=== PATIENT | female | born 1975 | race American Indian/Alaskan Native ===

== ENCOUNTER 2023-02-28 23:08 | Emergency (ER) | payer MEDICAID ==
[2023-03-01] MEDS ORDERED: Midazolam 1 MG/ML 2 ML SDV ONE (03:25)
[2023-03-01] MEDS ORDERED: Ketorolac 30 MG/ML SDV ONE (03:25)
[2023-03-01] MEDS ORDERED: Lidocaine 1% with EPINEPHrine 1:100,000 50 ML MDV ONE (03:26)
[2023-03-01] MEDS ORDERED: cefTRIAXone 2 GM Vial ONE (03:26)
[2023-03-01] MEDS ORDERED: HYDROmorphone 1 MG/ML Syringe ONE (03:26)
[2023-03-01] MEDS ORDERED: Sodium Chloride 0.9% 50 ML ONE (03:26)
[2023-03-01] MEDS ORDERED: Ondansetron 4 MG/2 ML SDV ONE (05:45)
[2023-03-01 08:00] LABS: INR 1.02 (0.86-1.11); PTT,PARTIAL THROMBOPLSTIN TIME 27.3 SEC (23.9-30.7)
[2023-03-01 08:01] LABS: C-REACTIVE PROTEIN 1.2 mg/dL (0.00-0.90); CALCIUM 8.6 mg/dL (8.5-10.1); CARBON DIOXIDE,CO2 24.2 mmol/L (21.0-32.0); CREATININE 0.6 mg/dL (0.6-1.0); EST CRCL DRUG DOSING (CG) 84.15 mL/min; POTASSIUM,K 3.8 mmol/L (3.5-5.1)
[2023-03-01 08:05] LABS: HEMATOCRIT 39.9 % (36.0-46.0); HEMOGLOBIN 13.3 g/dL (12.0-16.0); MEAN CORPUSCULAR HGB CONC 33.3 g/dL (31.0-37.0); MEAN PLATELET VOLUME 10.5 fL (7.40-12.00); RED BLOOD CELL COUNT 4.75 M/uL (4.30-5.90); WHITE BLOOD CELL COUNT,WBC 8.75 K/uL (4.0-11.0)
== END 2023-03-01 07:41 | disposition home or self-care (01) ==
LOC: MW.ED 23:08
DX: L02.214 Cutaneous abscess of groin (principal)
CPT/HCPCS: 36415; 74177; 80048; 83605; 85027; 85610; 85730; 86140; 87040; 99284; J0696; J1885; J2250; J2405; J3490; 99283

== ENCOUNTER 2023-06-01 13:39 | Emergency (ER) | payer MEDICAID ==
[2023-06-01] MEDS ORDERED: Sodium Chloride 0.9% 10 ML Syringe FLUSH PRN (13:45)
[2023-06-01] MEDS ORDERED: Sodium Chloride 0.9% 2.5 ML Syringe FLUSH PRN (13:45)
[2023-06-01] MEDS ORDERED: Lidocaine 2% Viscous Solution 15 ML UD PO STA (13:45)
[2023-06-01] MEDS ORDERED: Aluminum Hydroxide/Magnesium Hydroxide/Simethicone XS Susp 30 ML Cup PO STA (13:46)
[2023-06-01 14:03] LABS: BASOPHILS PERCENT AUTO 0.3 % (0.0-1.5); EOSINOPHILS ABSOLUTE AUTO 0.1 K/uL (0.0-0.7); EOSINOPHILS PERCENT AUTO 2.1 % (0.0-7.0); HEMATOCRIT 41.3 % (36.0-46.0); HEMOGLOBIN 13.2 g/dL (12.0-16.0); LYMPHOCYTES ABSOLUTE AUTO 2.3 K/uL (0.6-2.4); LYMPHOCYTES PERCENT AUTO 36.6 % (16.0-40.0); MEAN CORPUSCULAR HEMOGLOBIN 26.9 pg (27.0-32.0); MEAN CORPUSCULAR VOLUME 84.3 fL (80.0-98.0); MONOCYTES ABSOLUTE AUTO 0.5 K/uL (0.0-0.8); MONOCYTES PERCENT AUTO 8.6 % (0.0-15.0); NEUTROPHILS ABSOLUTE AUTO 3.2 K/uL (1.4-5.7); NEUTROPHILS PERCENT AUTO 52.4 % (48.0-80.0); NRBC ABSOLUTE 0 K/uL; PLATELET COUNT,PLT 258 K/uL (150-400); WHITE BLOOD CELL COUNT,WBC 6.15 K/uL (4.0-11.0)
[2023-06-01 14:34] LABS: A/G RATIO 0.9 (0.9-1.6); ALBUMIN 3.3 g/dL (3.4-5.0); BILIRUBIN TOTAL 1.5 mg/dL (0.2-1.0); CALCIUM 8.7 mg/dL (8.5-10.1); CARBON DIOXIDE,CO2 22.1 mmol/L (21.0-32.0); CREATININE 0.6 mg/dL (0.6-1.0); EST CRCL DRUG DOSING (CG) 91.68 mL/min; POTASSIUM,K 3.8 mmol/L (3.5-5.1); PROTEIN TOTAL,TP 7.1 g/dL (6.4-8.2)
[2023-06-01 14:36] LABS: MAGNESIUM 1.6 mg/dL (1.8-2.4)
[2023-06-01] MEDS ORDERED: Ketorolac 30 MG/ML SDV IVPUSH STA (14:54)
[2023-06-01 14:58] LABS: HEMOGLOBIN A1C 13.6 %
[2023-06-01 16:20] LABS: BILIRUBIN,URINE NEGATIVE (NEGATIVE); COLOR,URINE YELLOW; GLUCOSE,URINE 250 mg/dL (NEGATIVE); KETONES,URINE TRACE mg/dL (NEGATIVE); LEUKOCYTE ESTERASE,URINE NEGATIVE (NEGATIVE); NITRITE,URINE NEGATIVE (NEGATIVE); OCCULT BLOOD,URINE NEGATIVE (NEGATIVE); PH,URINE 5.5 (5.0-8.0); PROTEIN,URINE NEGATIVE (NEGATIVE); UROBILINOGEN,URINE 0.2 EU/dL (<2.0)
[2023-06-01 16:22] LABS: APPEARANCE,URINE HAZY
[2023-06-01] MEDS ORDERED: Pantoprazole 40 MG in Sodium Chloride 0.9% 10 ML IVPUSH STA (17:08)
== END 2023-06-01 18:00 | disposition home or self-care (01) ==
LOC: MW.ED 13:39
DX: R12 Heartburn (principal); K83.1 Obstruction of bile duct; R74.01 Elevation of levels of liver transaminase levels; D64.9 Anemia, unspecified
CPT/HCPCS: 36415; 71046; 76705; 80053; 81003; 81025; 83036; 83690; 83735; 84484; 85025; 93005; 96374; 96375; 99285; A9270; C9113; J1885; J3490; 93010; 99284

== ENCOUNTER 2025-06-26 13:16 | Emergency (ER) | payer MEDICAID, OTHER ==
[2025-06-26] MEDS ORDERED: Sodium Chloride 0.9% 10 ML Syringe FLUSH PRN (13:55)
[2025-06-26] MEDS ORDERED: Sodium Chloride 0.9% 2.5 ML Syringe FLUSH PRN (13:55)
[2025-06-26 14:02] LABS: BASOPHILS ABSOLUTE AUTO 0.03 K/uL (0.00-0.20); BASOPHILS PERCENT AUTO 0.4 % (0.0-1.0); EOSINOPHILS ABSOLUTE AUTO 0.12 K/uL (0.00-0.45); EOSINOPHILS PERCENT AUTO 1.6 % (0.0-6.0); IMMATURE GRAN ABSOLUTE AUTO 0.01 K/uL (0.00-0.05); IMMATURE GRAN PERCENT AUTO 0.1 % (0.0-0.4); LYMPHOCYTES ABSOLUTE AUTO 2.77 K/uL (1.00-4.80); LYMPHOCYTES PERCENT AUTO 38.0 % (24.0-44.0); MEAN PLATELET VOLUME 10.3 fL (9.4-12.3); MONOCYTES ABSOLUTE AUTO 0.50 K/uL (0.00-0.80); MONOCYTES PERCENT AUTO 6.9 % (0.0-8.0); NEUTROPHILS ABSOLUTE AUTO 3.86 K/uL (1.80-7.70); NEUTROPHILS PERCENT AUTO 53.0 % (41.0-71.0); NRBC ABSOLUTE 0.00 K/uL (0.00-0.02); NRBC PERCENT 0.0 /100WBC (0.0-0.2); PLATELET COUNT,PLT 186 K/uL (150-400); RED BLOOD CELL COUNT 4.68 M/uL (4.10-5.30); WHITE BLOOD CELL COUNT,WBC 7.29 K/uL (3.9-11.3)
[2025-06-26 14:37] LABS: A/G RATIO 0.8 (0.9-1.6); ALANINE AMINOTRANSFERASE,ALT 91.0 IU/L (14-63); ASPARTATE AMNIOTRANSFERASE,AST 57.0 IU/L (15-37); BILIRUBIN TOTAL 1.5 mg/dL (0.2-1.0); BLOOD UREA NITROGEN,BUN 12.0 mg/dL (7.0-18.0); CARBON DIOXIDE,CO2 25.4 mmol/L (21.0-32.0); CHLORIDE,CL 105.0 mmol/L (98-107); CREATININE 0.7 mg/dL (0.6-1.0); EST CRCL DRUG DOSING (CG) 73.36 mL/min; GLUCOSE RANDOM 320.0 mg/dL (74-106); POTASSIUM,K 4.3 mmol/L (3.5-5.1); PROTEIN TOTAL,TP 7.0 g/dL (6.4-8.2); SODIUM,NA 141.0 mmol/L (136-145)
[2025-06-26 14:38] LABS: INR 1.02 (0.86-1.11); PTT,PARTIAL THROMBOPLSTIN TIME 26.8 SEC (23.9-30.7)
[2025-06-26 14:38] LABS: ESTIMATED GFR 106.0 mL/min (>60)
[2025-06-26] MEDS: Ketorolac 30 MG/ML SDV IVPUSH ONE (14:45)
[2025-06-26] MEDS: Alum Hydrox/Mag Hydrox/Simeth 15 ML, Lidocaine 2% 5 ML PO ONE (14:46)
[2025-06-26] MEDS: Iopamidol 755 Mg/ML 100 ML Bottle IVPUSH ONE (15:52)
[2025-06-26] MEDS: Pantoprazole 80 MG in Sodium Chloride 0.9% 20 ML IVPUSH ONE (15:57)
== END 2025-06-26 17:26 | disposition home or self-care (01) ==
LOC: MW.ED 13:16
DX: K21.9 Gastro-esophageal reflux disease without esophagitis (principal); E11.65 Type 2 diabetes mellitus with hyperglycemia; R94.5 Abnormal results of liver function studies; Z90.49 Acquired absence of other specified parts of digestive tract; Z79.899 Other long term (current) drug therapy; Z75.3 Unavailability and inaccessibility of health-care facilities
CPT/HCPCS: 36415; 71045; 71275; 80053; 83690; 83735; 84484; 85025; 85610; 85730; 87428; 93005; 96361; 96374; 96375; 99285; J1885; J2470; J3490; J7030; Q9967; 93010; 99284; A9270-GY